=== PATIENT | female | born 1985 | race Two or more races ===

== ENCOUNTER 2022-03-04 16:48 | Emergency (ER) | payer OTHER ==
[~2022-03-04] VITALS: Ht 162.6 cm; Wt 59.0 kg
--- NOTE | 2022-03-04 17:09 | NUR ---
Dr Hines at the bedside for MSE.
[2022-03-04] MEDS ORDERED: ASPIRIN 81 MG TAB.CHEW PO ONE (17:15)
[2022-03-04] MEDS ORDERED: ACETAMINOPHEN ES 500 MG TABLET PO ONE (17:15)
[2022-03-04] MEDS ORDERED: ACETAMINOPHEN ES 500 MG TABLET ONE (17:21)
[2022-03-04] MEDS ORDERED: ASPIRIN 81 MG TAB.CHEW ONE (17:21)
[2022-03-04 17:51] LABS: CARBON DIOXIDE 28 mmol/L (21-32); CHLORIDE 104 mmol/L (98-107); CREATININE 0.7 mg/dL (0.6-1.3); GLUCOSE 102 mg/dL (74-106); POTASSIUM 4.6 mmol/L (3.5-5.1); UREA NITROGEN, BLOOD 17 mg/dL (7-18)
[2022-03-04 17:58] LABS: HEMATOCRIT 36.9 % (31.2-41.9); MEAN CORPUSCULAR HEMOGLOBIN 30.7 uug (24.7-32.8); MEAN CORPUSCULAR VOLUME 90.6 fL (75.5-95.3); PLATELET COUNT (AUTO) 224 K/uL (179-408)
--- NOTE | 2022-03-04 18:11 | NUR ---
Pt resting in bed, talking on the phone, NAD noted.
[2022-03-04 18:50] VITALS: BP 115/66
--- NOTE | 2022-03-04 18:50 | NUR ---
Patient discharged to home in stable condition. Written and verbal after care instructions given. Patient verbalizes understanding of instructions. Stressed follow up or return to ER for worsening s/s.
== END 2022-03-04 18:50 | disposition home or self-care (01) ==
LOC: ER 16:50
DX: R07.9 Chest pain, unspecified (principal)
CPT/HCPCS: 36415; 71045; 84484; 85025; 93005; A4663; A9150